=== PATIENT | male | born 1985 | race Caucasian/White ===

== ENCOUNTER 2016-07-11 11:29 | Outpatient (CLI) | payer BC ==
[~2016-07-11] VITALS: Ht 185.4 cm; Wt 181.7 kg
[~2016-07-11 11:29] MED LIST: ALPR0.5T7 PO; ARIP10TA17 PO; ASPI-816 PO; CARI350T27 PO; DICL75TA2 PO; DULO30CA48 PO; DULO60CA58 PO; ENAL2.5T PO; ENAL20TA PO; ENLP10T; GABA600T2 PO; GLIP10TA13 PO; HYDR-32; HYDR-3820 PO; HYDROCODONE; HYOS0.1217 PO; HYOS0.1283 SL; MECL-106 PO; METO-270 PO; METR500T PO; MTC10T; ONDA8TAB13 PO; ONDN4T; PANT40TA3 PO; PNT40TEC; PRAZ1CAP2 PO; PRAZ2CAP2 PO; PRM12.5SU; QUET200T57 PO; SCOP1PAT TOP; SCR1T1; SUCR1TAB PO; TRAZ100T92 PO; VENL75CA93 PO; [UNRECOGNIZED DRUG - CODE] PO
--- OUTSIDE RECORDS SUMMARY | 2016-07-11 11:33 | XMS REPORT | Continuity of Care Document ---
Author Author [facility] Organization [facility] Address Unknown Phone Unavailable Care Team Providers Care Aquatic Centre Manager Name Role Phone ABDULLAHI SY MD PCP Insurance Providers Payer Name Policy Number Subscriber Name Relationship [facility] [id number] Sebastian Monte Self / Same As Patient Advance Directives Directive Response Recorded Date/Time Advance Directives No 04/19/16 10:45am Health Care Power of L Tacker No 04/19/16 10:45am Organ Donor Yes 04/19/16 10:45am Resuscitation Status Full Code 04/19/16 10:45am Problems Active Problems Medical Problem Onset Date Status Closed head injury Unknown Acute Mesenteric adenitis Unknown Acute Medications Current Home Medications Medication Dose Units Route Directions Days/Qty Instructions Start Date Enalapril Maleate 20 Mg 20 Mg Oral Daily 04/25/15 Carisoprodol 350 Mg 350 Mg Oral Twice A Day 04/25/15 Alprazolam 0.5 Mg 0.5 Mg Oral Three Times A Day 04/25/15 Hydrocodone/Acetaminophen 1 Each 1 Tab Oral Every 6 Hours as needed for Pain 04/25/15 Gabapentin 600 Mg 600 Mg Oral Three Times A Day 04/25/15 Glipizide 10 Mg 10 Mg Oral Daily 04/25/15 Diclofenac Sodium 75 Mg 75 Mg Oral Twice A Day 04/25/15 Past Home Medications Medication Directions Ordered Status [Hydrocodone] , 04/15/08 Discontinued Sucralfate 1 Gm Tab, 05/12/08 Discontinued Metoclopramide Hcl 10 Mg Tablet, 05/12/08 Discontinued Pantoprazole Sodium 40 Mg Tablet.dr, 05/12/08 Discontinued Promethazine Hcl 12.5 Mg Supp, 05/12/08 Discontinued Enalapril Maleate 10 Mg Tab, 05/12/08 Discontinued Ondansetron Hcl 4 Mg Tab, 05/12/08 Discontinued Acetaminophen/Hydrocodone Bitart 1 Ea Tablet, 05/12/08 Discontinued Venlafaxine Hcl 75 Mg Cap.er.24h, 75 Mg Oral Daily 04/25/15 Discontinued Aripiprazole 10 Mg Tablet, 10 Mg Oral Daily 04/25/15 Discontinued Trazodone Hcl 100 Mg Tablet, 100 Mg Oral Daily 04/25/15 Discontinued Aspirin/Caffeine 1 Each Tablet, 1 Tab Oral Daily 04/25/15 Discontinued Hyoscyamine Sulfate 0.125 Mg Tab.subl, 0.25 Mg Sublingual Every 6 Hours as needed for Cramps 02/21/16 Discontinued Social History Social History Problem Response Recorded Date/Time Alcohol Use Denies Use 04/25/2015 11:34pm Recreational Drug Use No 04/25/2015 11:34pm Recent Foreign Travel No 04/19/2016 10:45am Recent Infectious Disease Exposure No 04/19/2016 10:45am Smoking Status Never a Smoker 04/19/2016 10:45am Do you dip or chew tobacco? Yes 04/25/2015 11:34pm Recent Hopitalizations No 04/19/2016 10:45am Query Response Start Date Stop Date Smoking Status Never a Smoker Hospital Discharge Instructions No hospital discharge instructions. Plan of Care Discharge Date 04/19/16 10:50am Prescriptions See Medication Section Functional Status No functional status results. Allergies, Adverse Reactions, Alerts Allergen Type Severity Reaction Status Last Updated Penicillins ([id number]) Allergy Unknown Active 02/21/16 Sulfa (Sulfonamide Antibiotics) ([id number]) Allergy Unknown UNKNOWN Active 02/21/16 PEAS Allergy Unknown UNKNOWN Active 12/29/06 Immunizations No immunization records. Vital Signs Acute Vital Signs Vital Response Date/Time Height (Feet) 6 feet 04/19/2016 10:45am Height (Inches) 1.00 inches 04/19/2016 10:45am Height (Calculated Centimeters) 185.519287 cm 04/19/2016 10:45am Weight (Pounds) 400 pounds 04/19/2016 10:45am Weight (Ounces) 0.0 oz 04/19/2016 10:45am Weight (Calculated Grams) 179760.95 gm 04/19/2016 10:45am Weight (Calculated Kilograms) 181.689578 kilograms 04/19/2016 10:45am Calculated BMI 52.8 04/19/2016 10:45am Results No known relevant diagnostic tests, laboratory data and/or discharge summary. Procedures No known history of procedures. Encounters Encounter Location Arrival/Admit Date Discharge/Depart Date Attending Provider Departed Clinic [facility] 04/19/16 9:50am 04/19/16 10: 50am ABDULAZIZ KWAN MD
[2016-07-11 11:48] VITALS: BP 139/100
[2016-07-14] MEDS ORDERED: HYDR-3730 PO (11:39)
== END 2016-07-11 11:50 | disposition home or self-care (01) ==
LOC: PREOP 11:29
PROVIDERS: ATTEND Surgery Pediatric Surgery
DX: Z01.818 Encounter for other preprocedural examination (principal); Z11.2 Encounter for screening for other bacterial diseases; K82.8 Other specified diseases of gallbladder
CPT/HCPCS: 87081

== ENCOUNTER 2016-07-14 09:04 | Day surgery (SDC) | payer BC ==
[~2016-07-14] VITALS: Ht 185.4 cm; Wt 181.7 kg
[~2016-07-14 09:04] MED LIST changes: +CLINDAMYCIN 600 MG/50 ML IVPB 50 ML IV ONE
--- OUTSIDE RECORDS SUMMARY | 2016-07-14 09:07 | XMS REPORT | Continuity of Care Document ---
Author Author [facility] Organization [facility] Address Unknown Phone Unavailable Care Team Providers Care Salt Machine Operator Name Role Phone ABDULLAHI SY MD PCP Insurance Providers Payer Name Policy Number Subscriber Name Relationship [facility] [id number] Sebastian Monte Self / Same As Patient Advance Directives Directive Response Recorded Date/Time Advance Directives No 04/19/16 10:45am Health Care Power of Manager Advanced No 04/19/16 10:45am Organ Donor Yes 04/19/16 [...] Type Severity Reaction Status Last Updated Penicillins ([id number]) Allergy Unknown Active 02/21/16 Sulfa (Sulfonamide Antibiotics) ([id number]) Allergy Unknown UNKNOWN Active 02/21/16 PEAS Allergy Unknown UNKNOWN Active 12/29/06 Immunizations No immunization records. Vital Signs Acute Vital Signs Vital Response Date/Time Height (Feet) 6 feet 04/19/2016 10:45am Height (Inches) 1.00 inches 04/19/2016 10:45am Height (Calculated Centimeters) 185.256756 cm 04/19/2016 10:45am Weight (Pounds) 400 pounds 04/19/2016 10:45am Weight (Ounces) 0.0 oz 04/19/2016 10:45am Weight (Calculated Grams) 998522.95 gm 04/19/2016 10:45am Weight (Calculated Kilograms) 181.993561 kilograms 04/19/2016 10:45am Calculated BMI 52.8 04/19/2016 10:45am Results No known relevant diagnostic tests, laboratory data and/or discharge summary. Procedures No known history of procedures. Encounters Encounter Location Arrival/Admit Date Discharge/Depart Date Attending Provider Departed Clinic [facility] 04/19/16 9:50am 04/19/16 10: 50am ABDULAZIZ KWAN MD
--- OUTSIDE RECORDS SUMMARY | 2016-07-14 09:08 | XMS REPORT | Continuity of Care Document ---
Author Author [facility] Organization [facility] Address Unknown Phone Unavailable Care Team Providers Care Learning Administrator Name Role Phone ABDULLAHI SY MD PCP Insurance Providers Payer Name Policy Number Subscriber Name Relationship [facility] [id number] Sebastian Monte Self / Same As Patient Advance Directives Directive Response Recorded Date/Time Advance Directives No 04/19/16 10:45am Health Care Power of Barman No 04/19/16 10:45am Organ Donor Yes 04/19/16 [...] Type Severity Reaction Status Last Updated Penicillins ([id number]) Allergy Unknown Active 02/21/16 Sulfa (Sulfonamide Antibiotics) ([id number]) Allergy Unknown UNKNOWN Active 02/21/16 PEAS Allergy Unknown UNKNOWN Active 12/29/06 Immunizations No immunization records. Vital Signs Acute Vital Signs Vital Response Date/Time Height (Feet) 6 feet 04/19/2016 10:45am Height (Inches) 1.00 inches 04/19/2016 10:45am Height (Calculated Centimeters) 185.433320 cm 04/19/2016 10:45am Weight (Pounds) 400 pounds 04/19/2016 10:45am Weight (Ounces) 0.0 oz 04/19/2016 10:45am Weight (Calculated Grams) 458828.95 gm 04/19/2016 10:45am Weight (Calculated Kilograms) 181.178703 kilograms 04/19/2016 10:45am Calculated BMI 52.8 04/19/2016 10:45am Results No known relevant diagnostic tests, laboratory data and/or discharge summary. Procedures No known history of procedures. Encounters Encounter Location Arrival/Admit Date Discharge/Depart Date Attending Provider Departed Clinic [facility] 04/19/16 9:50am 04/19/16 10: 50am ABDULAZIZ KWAN MD
[2016-07-14] MEDS ORDERED: CATHETER FLUSH 10 ML SYR IV PRN (09:15)
[2016-07-14] MEDS ORDERED: CLINDAMYCIN 600 MG/50 ML IVPB 50 ML IV ONE (09:15)
[2016-07-14] MEDS ORDERED: FAMOTIDINE 20MG/2ML IV (PEPCID) IV ONE (09:30)
--- NOTE | 2016-07-14 09:36 | Progress Note-Pre Operative ---
Pre-Operative Progress Note H&P Reviewed The H&P was reviewed, patient examined and no changes noted. Date H&P Reviewed: Jul 14, 2016 Time H&P Reviewed: 09:30 Pre-Operative Diagnosis: symptomatic biliary dyskinesia ABDULAZIZ KWAN MD Jul 14, 2016 9:36 am
[2016-07-14] MEDS ORDERED: morphine INJ 10 MG/ML 1ML (SYR OR VIAL) IVP PRN ×2 (09:45→12:15)
[2016-07-14] MEDS ORDERED: ONDANSETRON 4 MG/2 ML (SDV) Z0FRAN IVP PRN ×2 (09:45→12:15)
[2016-07-14] MEDS ORDERED: HYDROcodone/APAP 5 MG/325 MG (LORTAB) TAB PO ONE (09:45)
[2016-07-14] MEDS ORDERED: ACETAMINOPHEN 325 MG TABLET/CAPLET (TYLENOL) PO PRN (09:45)
[2016-07-14] MEDS: LACTATED RINGERS 1,000 ML IV PRN ×2 (09:46→10:45)
[2016-07-14] MEDS ORDERED: BUP/EPI 0.5% 1:200,000 (SENSORCAINE) 30 ML VIAL ONE (09:49)
[2016-07-14] MEDS ORDERED: MIDAZOLAM 2 MG/2 ML (VERSED) VIAL ONE (09:51)
[2016-07-14] MEDS ORDERED: ONDANSETRON 4 MG/2 ML (SDV) Z0FRAN ONE (09:51)
[2016-07-14] MEDS ORDERED: proPOfol 200 MG/20 ML (DIPRIVAN) VIAL IV ONE (09:51)
[2016-07-14] MEDS ORDERED: ROCURONIUM 50 MG/5 ML (ZEMURON) VIAL IV ONE ×3 (09:51→11:15)
[2016-07-14] MEDS ORDERED: SEVOFLURANE (ULTANE) 15 ML INHAL SOLN ONE ×3 (09:51→11:30)
[2016-07-14] MEDS ORDERED: fentaNYL INJECTION 250 MCG/5 ML AMP ONE (09:51)
[2016-07-14] MEDS ORDERED: LIDOCAINE PF 2% 10 ML (XYLOCAINE) AMP ONE (09:51)
[2016-07-14] MEDS ORDERED: LACTATED RINGERS 1,000 ML IV ONE ×2 (09:51→11:05)
[2016-07-14 10:01] VITALS: BP 145/103
[2016-07-14] MEDS ORDERED: ENAL20TA PO (10:16)
[2016-07-14] MEDS ORDERED: ESMOLOL 100 MG/10 ML (BREVIBLOC) VIAL ONE (11:00)
[2016-07-14] MEDS ORDERED: NEOSTIGMINE (BLOXIVERZ ) 1 MG/1ML 10 ML VIAL ONE (11:17)
[2016-07-14] MEDS ORDERED: GLYCOPYRROLATE 0.2 MG/ML (ROBINUL) 2 ML VIAL ONE (11:17)
--- NOTE | 2016-07-14 11:38 | Progress Note-Post Operative ---
Post-Operative Progess Note Keyboard Instrument Tuner theo arcos SHEET LAYER Pre-Operative Diagnosis symptomatic biliary dyskinesia Post-Operative Diagnosis same Post-Op Procedure Note Date of Procedure: Jul 14, 2016 Name of Procedure: laparoscopic cholecystectomy Anesthesia Type GET Estimated blood loss (mL): minimal Specimen(s) collected gallbladder ABDULAZIZ KWAN MD Jul 14, 2016 11:38
[2016-07-14] MEDS ORDERED: HYDR-3730 PO (11:39)
--- NOTE | 2016-07-14 11:40 | Discharge Inst-Surgical ---
D/C Lap Instructions-ANIYA New, Converted, or Re-Newed RX: RX on Chart Follow Up Appt in 2 weeks Activity as tolerated No driving for 24 hours No driving while on pain medications Incentive Spirometry use every 2 hours while awake Regular Diet Symptoms to Report: Fever over 101 degree F, Nausea/Vomiting Infection Signs and Symptoms to report: Increased redness, Foul odor of wound, Increased drainage Bathing instructions: May shower Operative Area Clean/Dry; Keep incision clean/dry If any problems/questions: Contact your physician or go to Emergency Room ABDULAZIZ KWAN MD Jul 14, 2016 11:40
[2016-07-14] MEDS ORDERED: MEPERIDINE (DEMEROL) INJ 50 MG/ML IVP PRN (12:15)
[2016-07-14] MEDS ORDERED: HYDROmorphone (DILAUDID) 2 MG/ML VIAL IVP PRN (12:15)
[2016-07-14] MEDS ORDERED: morphine INJ 10 MG/ML 1ML (SYR OR VIAL) ONE (12:17)
--- NOTE | 2016-07-14 12:57 | OPERATIVE REPORT ---
PROCEDURE PHYSICIAN: ABDULAZIZ PELAEZ DATE OF PROCEDURE: 07/14/2016 ATTENDING PHYSICIAN: Dr. Rich Dillard. PREOPERATIVE DIAGNOSIS: Symptomatic biliary dyskinesia. POSTOPERATIVE DIAGNOSIS: Symptomatic biliary dyskinesia. PROCEDURE: Laparoscopic cholecystectomy. SURGEON: Dr. Pelaez. GROUNDS CREW SUPERVISOR: Ramon Hoffman APRN. ANESTHESIA: General endotracheal. ESTIMATED BLOOD LOSS: Minimal. FINDINGS: 1. Significant hepatomegaly. 2. Mild gallbladder wall inflammation. 3. No stones identified. DISPOSITION: The patient tolerated the procedure well. Mr. Leland Lobo is a 30-year-old male with multiple medical problems. We had initially seen him in 2007 for a large symptomatic hiatal hernia and underwent a hiatal hernia repair and Alda fundoplication. Over time, he has gained a significant amount of weight. He has had issues with reflux and regurgitation and has also developed sleep apnea. We did an EGD and colonoscopy on him 04/2016 and was found to have reflux esophagitis between class B and C with no recurrent hiatal hernia, and intact previous Alda fundoplication. There was a moderate to severe gastritis more towards the upper portion of the stomach. The colonoscopy showed chronic, stage II external and internal hemorrhoids. He is medically treated; however, had continued episodes of nausea and vomiting and diarrhea, which normally would occur after eating meals. An ultrasound was performed, which did not show any gallstones however, HIDA scan was performed, which showed a very low ejection fraction and severe reproduction of symptoms consistent with symptomatic biliary dyskinesia. PROCEDURE: The patient was brought to the operating room, laid supine on the table. After adequate IV pain and sedative medications and general endotracheal intubation, the abdomen was prepped and draped in the standard surgical fashion. 0.5% Marcaine with epinephrine was then used to anesthetize the overlying skin in the left upper abdominal quadrant. A small transverse incision made using a 15 blade. An 0 silk suture was applied to the medial aspect of the incision for retraction. The Veress needle inserted with a low opening pressure of 0 mmHg and the abdomen was then insufflated to 15 mmHg pressure. A four-quadrant abdominal exploration was performed. There was a significant hepatomegaly as well as very thick omentum. Under direct visualization we then proceeded to place a supraumbilical 10 mm port after the skin and peritoneum were anesthetized using 0.5% Marcaine with epinephrine and a transverse incision made using a 15 blade. In a similar manner, 2 right upper abdominal quadrant, 5 mm ports were placed. The patient was then placed in steep reverse Trendelenburg position as well as planed right side up and left side down. The fundus of the gallbladder was retracted anteriorly and superiorly. There were omental adhesions to the body of the gallbladder which were bluntly dissected. The hepatoduodenal ligament was then opened using blunt dissection using a [place] dissector. The entire critical view of safety was identified including the triangle of Calot, cystic duct and artery, as well as the inferior portion of the gallbladder and the liver behind it. A timeout was then taken and the cystic duct and artery were then clipped proximally, distally and cut with Endo Lynsey. The appendix was then dissected off of the liver fossae using electrocautery on the hook instrument with visualization of good hemostasis, as well as no leaking ducts of Luschka. The area was then copiously irrigated and suctioned out. The subphrenic space was then irrigated and suctioned as well. The gallbladder was removed through the 10 mm port site using an Endo Catch bag. A 10 mm port site, fascia and peritoneum were then closed under direct visualization using a Jad is Charlie device the abdomen was desufflated and the remaining ports removed. Also skin incisions were then closed using 4-0 Monocryl running sutures. Wounds were then cleaned and covered with Dermabond. The patient tolerated the procedure well. We will start IV and oral pain medication as well as a clear liquid diet. Once he is tolerating clears, has good pain control with oral pain medications, ambulating well, we will discharge him home. Job ID: [id number] Dictated Date: 07/14/2016 11:48:32 Family Medicine Chair Date: 07/14/2016 12:40:42 / dandre
[2016-07-14 13:10] VITALS: BP 146/90
[2016-07-14] MEDS ORDERED: HYDROcodone/APAP 5 MG/325 MG (LORTAB) TAB ONE (13:31)
[2016-07-14 13:40] VITALS: BP 141/92
[2016-07-14 14:10] VITALS: BP 142/91
[2016-07-14 14:40] VITALS: BP 142/91
== END 2016-07-14 14:40 | disposition home or self-care (01) ==
LOC: SDC 09:04
PROVIDERS: ATTEND Surgery Pediatric Surgery
DX: K81.1 Chronic cholecystitis (principal)
CPT/HCPCS: 82962; 94664

== ENCOUNTER 2017-03-23 11:31 | Emergency (ER) | payer BC ==
[~2017-03-23] VITALS: Ht 185.4 cm; Wt 158.8 kg
[~2017-03-23 11:31] MED LIST changes: -CLINDAMYCIN 600 MG/50 ML IVPB 50 ML IV ONE; +HYDR-3730 PO; +HYOS-6 PO; -HYOS0.1217 PO
[2017-03-23] MEDS: NS IV 1000 ML 1,000 ML IV ONE ×2 (12:15→13:26)
[2017-03-23 12:19] LABS: BASOPHILS # (AUTO) 0.1 10^3/uL (0.0-0.1); BASOPHILS % (AUTO) 1 % (0-10); EOSINOPHILS # (AUTO) 0.3 10^3/uL (0.0-0.3); EOSINOPHILS % (AUTO) 3 % (0-10); LYMPHOCYTES # (AUTO) 2.8 X 10^3 (1.0-4.0); LYMPHOCYTES % (AUTO) 30 % (12-44); MEAN CORPUSCULAR HEMOGLOBIN 29 PG (25-34); MEAN CORPUSCULAR HGB CONC 34 G/DL (32-36); MEAN CORPUSCULAR VOLUME 86 FL (80-99); MONOCYTES # (AUTO) 0.8 X 10^3 (0.0-1.0); MONOCYTES % (AUTO) 8 % (0-12); NEUTROPHILS # (AUTO) 5.5 X 10^3 (1.8-7.8); NEUTROPHILS % (AUTO) 59 % (42-75); PLATELET COUNT 258 10^3/uL (130-400); RED BLOOD COUNT 5.48 10^6/uL (4.35-5.85); RED CELL DISTRIBUTION WIDTH 14.1 % (10.0-14.5); WHITE BLOOD COUNT 9.4 10^3/uL (4.3-11.0)
[2017-03-23 12:34] LABS: ALANINE AMINOTRANSFERASE 18 U/L (0-55); ALBUMIN 4.6 GM/DL (3.2-4.5); ANION GAP 14 MMOL/L (5-14); ASPARTATE AMINO TRANSFERASE 19 U/L (5-34); BILIRUBIN,TOTAL 0.5 MG/DL (0.1-1.0); BLOOD UREA NITROGEN 18 MG/DL (7-18); BUN/CREATININE RATIO 19; CALCIUM 10.7 MG/DL (8.5-10.1); CARBON DIOXIDE 25 MMOL/L (21-32); CHLORIDE 100 MMOL/L (98-107); CREATININE SERUM 0.93 MG/DL (0.60-1.30); GFR ESTIMATED > 60; GLUCOSE 130 MG/DL (70-105); POTASSIUM 3.9 MMOL/L (3.6-5.0); SODIUM 139 MMOL/L (135-145); TOTAL PROTEIN 8.4 GM/DL (6.4-8.2)
[2017-03-23 12:36] LABS: PROTHROMBIN TIME PATIENT 12.9 SEC (12.2-14.7)
[2017-03-23 12:37] LABS: MAGNESIUM 1.7 MG/DL (1.8-2.4)
[2017-03-23 12:41] LABS: KETONES,URINE 1+ (NEGATIVE); LEUKOCYTE ESTERASE ,URINE 1+ (NEGATIVE); NITRITE,URINE NEGATIVE (NEGATIVE); PH,URINE 5 (5-9); PROTEIN,URINE 2+ (NEGATIVE); UROBILINOGEN,URINE 1 MG/DL (NORMAL)
[2017-03-23 12:50] LABS: MYOGLOBIN SERUM 129.5 NG/ML (10.0-92.0)
[2017-03-23 12:50] LABS: BILIRUBIN,URINE 1+ (NEGATIVE)
--- NOTE | 2017-03-23 12:50 | Diagnostic Imaging Report ---
PROCEDURE: CT head without contrast. TECHNIQUE: Multiple contiguous axial images were obtained through the brain without the use of intravenous contrast. INDICATION: Dizziness and sweating. Comparison: CT head of 04/25/2015 Findings: No hyperdense hemorrhage or space-occupying mass. No hydrocephalus or midline shift. The basilar cisterns are normal. Sommers-white matter differentiation is well preserved. The mastoid air cells are clear. Paranasal sinuses are normal. No focal osseous abnormality of the calvarium. Impression: No acute intracranial process. Dictated by: Dictated on workstation # [id number]
[2017-03-23 12:51] LABS: WBC,URINE RARE /HPF
--- NOTE | 2017-03-23 13:01 | ED General ---
General Chief Complaint: General Problems/Pain Stated Complaint: PROFUSE SWEATING/DIZZY/NUMBNESS IN ARMS Nursing Triage Note: Ambulatory to ED 8 with reports of vomiting, headache and being profusely sweaty since last night. Nursing Sepsis Screen: No Definite Risk History of Present Illness Time Seen by Provider: 11:45 Initial Comments Patient reports yesterday evening at home, he was doing some work when he hit his head on a metal pipe, in the frontal lobe. He denies loss of consciousness. After that he began vomiting he reports approximately 6-8 times last evening. He 's had no vomiting or diarrhea today. He reports while at work today he became extremely diaphoretic and dizzy at times. He reports poor urinary output. He ate breakfast this morning and has had sips of water to drink throughout the day. He is a type II diabetic on glipizide, he reports his blood sugars have been stable and that his last hemoglobin A1c was elevated. He reports a continued frontal headaches 12/10. He is diaphoretic, skin is pink and his clothes are saturated. He reports a long-standing history of back pain from a previous injury and surgery, with posterior fusions thoracic and lumbar spine. He had a cholecystectomy in July 2016. He reports occasional chest discomfort which he is related to heartburn. The pain occasionally radiates into his back. He has occasional numbness and tingling in his bilateral upper extremities. Timing/Duration: 12-24 Hours Severity: Mild Associated Systoms: Chest Pain, Diaphoresis, Headaches, Nausea/Vomiting, Weakness Allergies and Home Medications Allergies Coded Allergies: Penicillins (Verified Allergy, Unknown, 02/21/16) Sulfa (Sulfonamide Antibiotics) (Unverified Allergy, Unknown, UNKNOWN, ) peas (Unverified Allergy, Unknown, 06/09/16) FROM UNCODED ALLERGIES Home Medications Alprazolam 0.5 Mg Tablet, 0.5 MG PO TID PRN for ANXIETY, (Reported) Aspirin/Caffeine 1 Each Tablet, 1 TAB PO DAILY PRN for PAIN, (Reported) Carisoprodol 350 Mg Tablet, 700 MG PO BID, (Reported) TAKES 2 (350MG) TABLETS Diclofenac Sodium 75 Mg Tablet.dr, 75 MG PO BID, (Reported) Duloxetine HCl 30 Mg Capsule.dr, 30 MG PO HS, (Reported) TAKES ALONG WITH A 60MG CAPSULE Duloxetine HCl 60 Mg Capsule., 60 MG PO HS, (Reported) TAKES ALONG WITH A 30MG CAPSULE Enalapril Maleate 20 Mg Tablet, 20 MG PO DAILY, (Reported) Gabapentin 600 Mg Tablet, 600 MG PO TID, (Reported) Glipizide 10 Mg Tablet, 10 MG PO HS, (Reported) Hydrocodone/Acetaminophen 1 Each Tablet, 2 TAB PO BID, (Reported) Hydrocodone/Acetaminophen 1 Each Tablet, 1-2 EACH PO Q4H, #35 Prescribed by: ABDULAZIZ KWAN on 07/14/16 1139 Hyoscyamine Sulfate 0.125 Mg Tab.rapdis, 1-2 TAB PO Q6H PRN for CRAMPS, ( Reported) Meclizine HCl 25 Mg Tablet, 25 MG PO Q6H, #30 Prescribed by: ALEX BLACKWELL on 06/09/16 1639 Ondansetron 8 Mg Tab.rapdis, 8 MG PO Q8H PRN for NAUSEA, (Reported) Pantoprazole Sodium 40 Mg Tablet.dr, 40 MG PO DAILY PRN for HEARTBURN, (Reported ) Quetiapine Fumarate 200 Mg Tablet, 200 MG PO HS, (Reported) Quetiapine Fumarate 200 Mg Tablet, 100 MG PO DAILY PRN for AGITATION, (Reported) TAKES 1/2 (200MG) TABLET Scopolamine 1 Each Patch.td72, 1.5 MG TOP Q72H, #5 Prescribed by: ALEX BLACKWELL on 06/09/16 1639 Sucralfate 1 Gm Tablet, 1 GM PO QID PRN for STOMACH UPSET, (Reported) Constitutional: no symptoms reported, see HPI EENTM: see HPI, no symptoms reported Respiratory: no symptoms reported, see HPI Cardiovascular: see HPI, chest pain Gastrointestinal: see HPI, heartburn, vomiting Genitourinary: no symptoms reported, see HPI Musculoskeletal: no symptoms reported Skin: see HPI, other (marked diaphoresis) Psychiatric/Neurological: No Symptoms Reported, See HPI Hematologic/Lymphatic: No Symptoms Reported, See HPI Immunological/Allergic: no symptoms reported, see HPI All Other Systems Reviewed Negative Unless Noted: Yes Past Ucjfeyo-Gwqxzx-Ydarby Hx Patient Social History Alcohol Use: Denies Use Recreational Drug Use: No Smoking Status: Never a Smoker 2nd Hand Smoke Exposure: No Recent Foreign Travel: No Contact w/Someone Who Travel: No Recent Infectious Disease Expo: No Recent Hopitalizations: No Physical Abuse: No Sexual Abuse: No Immunizations Up To Date Tetanus Booster (TDap): Less than 5yrs Date of Influenza Vaccine: Mar 03, 2016 Seasonal Allergies Seasonal Allergies: Yes Surgeries History of Surgeries: Yes (LEFT THUMB, LEFT FOOT, BACK SURGERY, LAP HERLINDA FUNDOPLICATION) Surgeries: Abdominal, Orthopedic Respiratory History of Respiratory Disorde: Yes Respiratory Disorders: Sleep Apnea Currently Using CPAP: Yes Currently Using BIPAP: No Cardiovascular History of Cardiac Disorders: Yes Cardiac Disorders: Chronic Edema/Swelling, Hypertension Neurological History of Neurological Disord: Yes Neurological Disorders: Headaches /Migraines Reproductive System Hx Reproductive Disorders: No Sexually Transmitted Disease: No HIV/AIDS: No Gastrointestinal History of Gastrointestinal Di: Yes (ABDOMINAL PAIN) Gastrointestinal Disorders: Gastroesophageal Reflux, Hiatal Hernia, Gall Bladder Disease Musculoskeletal History of Musculoskeletal Dis: Yes Musculoskeletal Disorders: Chronic Back Pain, Fractures Endocrine History of Endocrine Disorders: Yes (MORBID OBESITY) Endocrine Disorders: Diabetes, Non-Insulin dep Cancer History of Cancer: No Psychosocial History of Psychiatric Problem: Yes Behavioral Health Disorders: Anxiety, PTSD, Depression Suicide Risk Score: 0 Integumentary History of Skin or Integumenta: No Blood Transfusions History of Blood Disorders: No Adverse Reaction to a Blood Tr: No Reviewed Nursing Assessment Reviewed/Agree w Nursing PMH: Yes Physical Exam Vital Signs Vital Sign - Last 12Hours 03/23/17 11:45 Temp 98.5 Pulse 97 Resp 20 B/P (MAP) 123/85 Pulse Ox 97 O2 Delivery Room Air Capillary Refill : Less Than 3 Seconds General Appearance: Anxious, Mild Distress, Other (marked diaphoresis) Eyes: Bilateral Eye Normal Inspection, Bilateral Eye PERRL, Bilateral Eye EOMI HEENT: PERRL/EOMI, TMs Normal, Normal ENT Inspection, Pharynx Normal Neck: Full Range of Motion, Normal Inspection, Non Tender, Supple, No Lymphadenopathy (L), No Lymphadenopathy (R) Respiratory: Chest Non Tender, Lungs Clear, Normal Breath Sounds, No Accessory Muscle Use Cardiovascular: Regular Rate, Rhythm, No Edema, No Murmur, Normal Peripheral Pulses Gastrointestinal: Normal Bowel Sounds, No Organomegaly, No Pulsatile Mass, Non Tender, Soft Back: No CVA Tenderness, Decreased Range of Motion, Muscle Spasm, Vertebral Tenderness, Other (scar noted from upper thoracic to mid lumbar, mild ecchymosis and mottling, patient denies noticing skin changes to his spine. His skin is hypersensitive to touch.) Extremity: Normal Capillary Refill, Normal Inspection, Normal Range of Motion, Non Tender, No Calf Tenderness, No Pedal Edema Neurologic/Psychiatric: Alert, Oriented x3, No Motor/Sensory Deficits, Normal Mood/Affect Skin: Normal Color, Diaphoresis, Mottled (thoracic and lumbar spine) Lymphatic: No Adenopathy Progress/Results/Core Measures Results/Orders Lab Results Laboratory Tests Test 03/23/17 12:05 03/23/17 12:09 03/23/17 12:34 Range/Units White Blood Count 9.4 4.3-11.0 10^3/uL Red Blood Count 5.48 4.35-5.85 10^6/uL Hemoglobin 16.1 13.3-17.7 G/DL Hematocrit 47 40-54 % Mean Corpuscular Volume 86 80-99 FL Mean Corpuscular Hemoglobin 29 25-34 PG Mean Corpuscular Hemoglobin Concent 34 32-36 G/DL Red Cell Distribution Width 14.1 10.0-14.5 % Platelet Count 258 130-400 10^3/uL Mean Platelet Volume 10.0 7.4-10.4 FL Neutrophils (%) (Auto) 59 42-75 % Lymphocytes (%) (Auto) 30 12-44 % Monocytes (%) (Auto) 8 0-12 % Eosinophils (%) (Auto) 3 0-10 % Basophils (%) (Auto) 1 0-10 % Neutrophils # (Auto) 5.5 1.8-7.8 X 10^3 Lymphocytes # (Auto) 2.8 1.0-4.0 X 10^3 Monocytes # (Auto) 0.8 0.0-1.0 X 10^3 Eosinophils # (Auto) 0.3 0.0-0.3 10^3/uL Basophils # (Auto) 0.1 0.0-0.1 10^3/uL Erythrocyte Sedimentation Rate 4 0-15 MM/HR Prothrombin Time 12.9 12.2-14.7 SEC INR Comment 1.0 0.8-1.4 Activated Partial Thromboplast Time 25 24-35 SEC Sodium Level 139 135-145 MMOL/L Potassium Level 3.9 3.6-5.0 MMOL/L Chloride Level 100 98-107 MMOL/L Carbon Dioxide Level 25 21-32 MMOL/L Anion Gap 14 5-14 MMOL/L Blood Urea Nitrogen 18 7-18 MG/DL Creatinine 0.93 0.60-1.30 MG/DL Estimat Glomerular Filtration Rate > 60 BUN/Creatinine Ratio 19 Glucose Level 130 H 70-105 MG/DL Calcium Level 10.7 H 8.5-10.1 MG/DL Magnesium Level 1.7 L 1.8-2.4 MG/DL Total Bilirubin 0.5 0.1-1.0 MG/DL Aspartate Amino Transf (AST/SGOT) 19 5-34 U/L Alanine Aminotransferase (ALT/SGPT) 18 0-55 U/L Alkaline Phosphatase 71 40-136 U/L Myoglobin 129.5 H 10.0-92.0 NG/ML Troponin I < 0.30 <0.30 NG/ML C-Reactive Protein High Sensitivity 0.93 H 0.00-0.50 MG/DL Total Protein 8.4 H 6.4-8.2 GM/DL Albumin 4.6 H 3.2-4.5 GM/DL Glucometer 119 H 70-110 MG/DL Urine Color YELLOW Urine Clarity CLEAR Urine pH 5 5-9 Urine Specific [place] 1.025 H 1.016-1.022 Urine Protein 2+ H NEGATIVE Urine Glucose (UA) NEGATIVE NEGATIVE Urine Ketones 1+ H NEGATIVE Urine Nitrite NEGATIVE NEGATIVE Urine Bilirubin 1+ H NEGATIVE Urine Urobilinogen 1 NORMAL MG/DL Urine Leukocyte Esterase 1+ H NEGATIVE Urine RBC (Auto) NEGATIVE NEGATIVE Urine RBC NONE /HPF Urine WBC RARE /HPF Urine Squamous Epithelial Cells 10-25 H /HPF Urine Crystals NONE /LPF Urine Bacteria TRACE /HPF Urine Casts NONE /LPF Urine Mucus NEGATIVE /LPF Urine Culture Indicated NO My Orders Orders - CLIFTON ROACH Cbc With Automated Diff (03/23/17 11:58) Comprehensive Metabolic Panel (03/23/17 11:58) Ua Culture If Indicated (03/23/17 11:58) Saline Lock/Iv-Start (03/23/17 11:58) Ns Iv 1000 Ml (Sodium Chloride 0.9%) (03/23/17 11:58) Ekg Tracing (03/23/17 12:05) Magnesium (03/23/17 12:19) Cardiac Profile 1 (03/23/17 12:19) Myoglobin Serum (03/23/17 12:19) Protime With Inr (03/23/17 12:19) Partial Thromboplastin Time (03/23/17 12:19) Ct Head Wo (03/23/17 12:19) Thoracic Spine, 2 Views Only (03/23/17 12:19) Lumbar Spine - 2-3 Views (03/23/17 12:19) Hs C Reactive Protein (03/23/17 12:19) Erythrocyte Sedimentation Rate (03/23/17 12:19) Saline Lock/Iv-Start (03/23/17 13:13) Ns Iv 1000 Ml (Sodium Chloride 0.9%) (03/23/17 13:13) Medications Given in ED Current Medications Medications Dose Ordered Sig/Yves Route Start Time Stop Time Status Last Admin Dose Admin Sodium Chloride 1,000 ml @ 0 mls/hr Q0M ONCE IV 03/23/17 11:58 03/23/17 12:00 DC 03/23/17 12:15 0 MLS/HR Sodium Chloride 1,000 ml @ 0 mls/hr Q0M ONCE IV 03/23/17 13:13 03/23/17 13:16 DC 03/23/17 13:26 0 MLS/HR Vital Signs/I&O Vital Sign - Last 12Hours 03/23/17 03/23/17 11:45 14:10 Temp 98.5 98.5 Pulse 97 74 Resp 20 18 B/P (MAP) 123/85 Pulse Ox 97 98 O2 Delivery Room Air Intake and Output 03/24/17 00:00 Intake Total 2000 ml Balance 2000 ml Blood Pressure Mean: 98 Progress Note : Time: 11:45 Progress Note Initial evaluation completed, we will obtain a workup for cardiac causes of his symptoms. EKG obtained in normal sinus rhythm. Additional labs and x-rays will be obtained along with a CT of the head. Normal saline 1 L IV. 1245 patient no longer having diaphoresis. Reports pain is improving and the paresthesias/radicular symptoms in the upper extremities are improving. Discussed that he was possibly dehydrated from the vomiting last evening. His labs, CT and x-rays are all essentially normal. 1320 patient reports his symptoms are continuing to improve. His headache has seen. Will administer an additional normal saline 1 L IV. Discharge planning for after the second liter of fluids were discussed with the patient, he will stay home from work for the rest of today and tomorrow and return to work on Monday. ECG Initial ECG Impression Date: Mar 23, 2017 Initial ECG Impression Time: 12:03 Initial ECG Rate: 91 Initial ECG Rhythm: Normal Sinus Initial ECG Intervals: Normal Initial ECG Intervals NM 152, QRS 3092, QT 344, QTC 424. [place] P 16, QRS negative for, T -2. Initial ECG Impression: Normal Initial ECG Comparisson: Unchanged Comment Reviewed EKG with Dr. Brown, concurred with the interpretation. Diagnostic Imaging Diagonstic Imaging: CT Plain Films/CT/US/NM/MRI: head Comments NAME: [facility] REC#: [id number] PHYSICIAN: CLIFTON ROACH CC: CLIFTON ROACH; RICHARD LINDA MD Page 1 of 1 RADIOLOGY REPORT VIA [facility], [facility]. [place], [place] CC: CLIFTON ROACH; RICHARD LINDA MD Page 1 of 1 RADIOLOGY REPORT NAME: [facility] REC#: [id number] PT STATUS: REG ER : 1985 PHYSICIAN: CLIFTON ROACH ADMIT DATE: 03/23/17/ER Signed Date of Exam: 03/23/17 CT HEAD WO PROCEDURE: CT head without contrast. TECHNIQUE: Multiple contiguous axial images were obtained through the brain without the use of intravenous contrast. INDICATION: Dizziness and sweating. Comparison: CT head of 04/25/2015 Findings: No hyperdense hemorrhage or space-occupying mass. No hydrocephalus or midline shift. The basilar cisterns are normal. Sommers-white matter differentiation is well preserved. The mastoid air cells are clear. Paranasal sinuses are normal. No focal osseous abnormality of the calvarium. Impression: No acute intracranial process. Dictated by: Dictated on workstation # [id number] Dict: 03/23/17 1246 Trans: 03/23/17 1248 Interpreted by: RICHARD LINDA MD Electronically signed by: RICHARD LINDA MD 03/23/17 1248 Reviewed: Reviewed by Nv Diagonstic Imaging: Xray Plain Films/CT/US/NM/MRI: other (lumbar spine) Comments NAME: [facility] REC#: [id number] PT STATUS: REG ER : 1985 PHYSICIAN: CLIFTON ROACH ADMIT DATE: 03/23/17/ER Draft Date of Exam:03/23/17 LUMBAR SPINE - 2-3 VIEWS Three views of the lumbar spine. INDICATION: Fall. FINDINGS: There is satisfactory alignment of the lumbar spine. There is posterior fusion hardware seen extending from the thoracic spine to L3 level. The transpedicular screws skip T12 and involves in the lumbar spine L1, L2 and L3. There is mild vertebral body height loss at T11 and T12, may relate to prior injury. Vertebral body heights at the lumbar spine is normal. No significant posterior osteophytes or disc height loss. IMPRESSION: Suggestion of old compression fractures of T11 and T12 with posterior fusion hardware extending from the thoracic spine to L3 level. Dictated on workstation # [id number] Dict: 03/23/17 1307 Trans: 03/23/17 1317 [facility] [id number] Interpreted by: ERNESTINE PARK MD Electronically signed by: Reviewed: Reviewed by Me Diagonstic Imaging: Xray Plain Films/CT/US/NM/MRI: other (thoracic spine) Comments NAME: [facility] REC#: [id number] PT STATUS: REG ER : 1985 PHYSICIAN: CLIFTON ROACH ADMIT DATE: 03/23/17/ER Draft Date of Exam:03/23/17 THORACIC SPINE, 2 VIEWS ONLY Three views of the thoracic spine. INDICATION: Fall. FINDINGS: There is thoracic spine posterior fusion hardware with connecting rods extending from T3-L3 levels. There is prominent kyphotic curvature of the thoracic spine. There is vertebral body height loss involving T11 and T12 levels presumably related to old injury. When correlated with CT of the 06/09/2016 similar vertebral body heights and interval change is seen. Multilevel anterior osteophytes involving the lower thoracic spine levels is seen. The alignment of the posterior spinal line is satisfactory. IMPRESSION: Posterior fusion hardware involving T3-L3 levels. There is exaggerated kyphosis in the thoracic spine. Chronic mild anterior wedging of T11 and T12 vertebra. Dictated on workstation # [id number] Dict: 03/23/17 1310 Trans: 03/23/17 1320 [facility] [id number] Interpreted by: ERNESTINE PAKR MD Electronically signed by: Reviewed: Reviewed by Me Departure Impression Impression: Primary Impression: Closed head injury Qualified Codes: S09.90XA - Unspecified injury of head, initial encounter Additional Impressions: Vomiting Qualified Codes: R11.11 - Vomiting without nausea Dehydration Disposition: HOME, SELF-CARE Condition: Improved Departure-Patient Inst. Decision time for Depature: 13:00 Referrals: ABDULLAHI DILLARD MD (PCP/Family) Primary Care Physician Patient Instructions: Dehydration, Adult (DC), Minor Head Injury (DC), Nausea and Vomiting, Adult (DC) Add. Discharge Instructions: Tylenol 650 mg every 6-8 hours as needed for headache or pain. Follow-up with Dr. Dillard if symptoms continue. Return to emergency department for fever greater than 101, seizure activity, change in mental status, uncontrolled vomiting, or new problems. All discharge instructions reviewed with patient and/or family. Voiced understanding. Work/School Note: Work Release Form Date Seen in the Emergency Department: Mar 23, 2017 Return to Work: Mar 27, 2017 Restrictions: No Restrictions Other Restrictions Listed Below: If continued problems, follow up with Dr. Dillard Copy Copies To 1: ABDULLAHI DILLARD MD, AMY ARNP Mar 23, 2017 13:01
--- NOTE | 2017-03-23 13:17 | Diagnostic Imaging Report ---
Three views of the lumbar spine. INDICATION: Fall. FINDINGS: There is satisfactory alignment of the lumbar spine. There is posterior fusion hardware seen extending from the thoracic spine to L3 level. The transpedicular screws skip T12 and involves in the lumbar spine L1, L2 and L3. There is mild vertebral body height loss at T11 and T12, may relate to prior injury. Vertebral body heights at the lumbar spine is normal. No significant posterior osteophytes or disc height loss. IMPRESSION: Suggestion of old compression fractures of T11 and T12 with posterior fusion hardware extending from the thoracic spine to L3 level. Dictated by: Dictated on workstation # [id number]
--- NOTE | 2017-03-23 13:21 | Diagnostic Imaging Report ---
Three views of the thoracic spine. INDICATION: Fall. FINDINGS: There is thoracic spine posterior fusion hardware with connecting rods extending from T3-L3 levels. There is prominent kyphotic curvature of the thoracic spine. There is vertebral body height loss involving T11 and T12 levels presumably related to old injury. When correlated with CT of the 06/09/2016 similar vertebral body heights and interval change is seen. Multilevel anterior osteophytes involving the lower thoracic spine levels is seen. The alignment of the posterior spinal line is satisfactory. IMPRESSION: Posterior fusion hardware involving T3-L3 levels. There is exaggerated kyphosis in the thoracic spine. Chronic mild anterior wedging of T11 and T12 vertebra. Dictated by: Dictated on workstation # [id number]
[2017-03-23 14:10] VITALS: BP 130/85
== END 2017-03-23 14:10 | disposition home or self-care (01) ==
LOC: EDUNIT# 11:31 → ER 11:34
DX: S09.90XA Unspecified injury of head, initial encounter (principal); E86.0 Dehydration; R11.10 Vomiting, unspecified; F41.9 Anxiety disorder, unspecified; F32.9 Major depressive disorder, single episode, unspecified; F43.10 Post-traumatic stress disorder, unspecified; E11.9 Type 2 diabetes mellitus without complications; G43.909 Migraine, unspecified, not intractable, without status migrainosus; G89.29 Other chronic pain; M54.9 Dorsalgia, unspecified; I10 Essential (primary) hypertension; K21.9 Gastro-esophageal reflux disease without esophagitis; G47.30 Sleep apnea, unspecified; Z87.81 Personal history of (healed) traumatic fracture; Z87.19 Personal history of other diseases of the digestive system; Z79.84 Long term (current) use of oral hypoglycemic drugs; Z90.49 Acquired absence of other specified parts of digestive tract; W22.09XA Striking against other stationary object, initial encounter; Y99.0 Civilian activity done for income or pay
CPT/HCPCS: 36415; 70450; 72070; 72100; 80053; 81000; 82962; 83735; 83874; 84484; 85025; 85610; 85652; 85730; 86141; 93005

== ENCOUNTER → 2017-05-20 | Outpatient (CLI) | payer BC ==
[~2017-05-20] MED LIST changes: -METO-270 PO; +METO-387 PO
== END ==
LOC: RAD 11:33
PROVIDERS: ATTEND Family Medicine
DX: M25.512 Pain in left shoulder (principal); Z53.29 Procedure and treatment not carried out because of patient's decision for other reasons

== ENCOUNTER 2017-08-13 11:20 | Emergency (ER) | payer SELFPAY ==
[~2017-08-13] VITALS: Ht 188 cm; Wt 158.8 kg
--- NOTE | 2017-08-13 13:40 | ED Fall/Injury ---
General Chief Complaint: Trauma-Non Activation Stated Complaint: FALL Nursing Triage Note: TO TRIAGE ROOM WITH COMPLAINTS OF FALLING ON SLICK AREA AT [employer]. STATES HE DID HAVE +LOC. COMPLAINS OF HEAD PAIN, DIZZINESS, BACK AND NUMBESS TO LEFT LEG. PT ALERT ET ORIENTED AT THIS TIME. Source: patient, other Exam Limitations: no limitations History of Present Illness Date Seen by Provider: Aug 13, 2017 Time Seen by Provider: 13:34 Initial Comments Patient presents to ER by private conveyance where he walked into the lobby and then used a wheelchair to come back to the bed. Patient transferred on his own. He says usually walks well without a cane or walker. Today about 11:00 this morning he was at a gas station walking down a handicapped ramp and his feet slipped out from underneath him and he fell landing on his back and then striking the back of his head against the floor. He has still a bit of a headache but this pain is tolerable. What concerns him is because he started having numbness in his left leg where he feels like somebody could stabbed him with a knife anywhere not feel it. He says he has some ongoing level of numbness and tingling in his left leg at baseline but is usually pretty mild. He does use hydrocodone 4 times a day as needed. He has a history of T4 through L3 fusions with rods. He is concerned he might have damaged some of his hardware in the fall. He is not having any incontinence of bowel or bladder. He did lose consciousness for a few seconds according to his significant other who was with him during the fall. He says this morning he woke up was having a really good day so he has not taken any hydrocodone yet. Shortly after the physician left the room and While in the ER the patient tried lifting his leg on his own and felt a popping sensation in his back and excruciating pain. Patient sees Dr. Dillard now but in the past his neurosurgeon was Dr. Abdalla who left [place] for [place] so Mr. Vásquez no longer follows with this doctor. [facility] Allergies and Home Medications Allergies Coded Allergies: Penicillins (Verified Allergy, Unknown, 02/21/16) Sulfa (Sulfonamide Antibiotics) (Unverified Allergy, Unknown, UNKNOWN, ) peas (Unverified Allergy, Unknown, 06/09/16) FROM UNCODED ALLERGIES Home Medications Alprazolam 0.5 Mg Tablet, 0.5 MG PO TID PRN for ANXIETY, (Reported) Aspirin/Caffeine 1 Each Tablet, 1 TAB PO DAILY PRN for PAIN, (Reported) Carisoprodol 350 Mg Tablet, 700 MG PO BID, (Reported) TAKES 2 (350MG) TABLETS Diclofenac Sodium 75 Mg Tablet.dr, 75 MG PO BID, (Reported) Duloxetine HCl 30 Mg Capsule.dr, 30 MG PO HS, (Reported) TAKES ALONG WITH A 60MG CAPSULE Duloxetine HCl 60 Mg Capsule.dr, 60 MG PO HS, (Reported) TAKES ALONG WITH A 30MG CAPSULE Enalapril Maleate 20 Mg Tablet, 20 MG PO DAILY, (Reported) Gabapentin 600 Mg Tablet, 600 MG PO TID, (Reported) Glipizide 10 Mg Tablet, 10 MG PO HS, (Reported) Hydrocodone/Acetaminophen 1 Each Tablet, 2 TAB PO BID, (Reported) Hydrocodone/Acetaminophen 1 Each Tablet, 1-2 EACH PO Q4H, #35 Prescribed by: ABDULAZIZ KWAN on 07/14/16 1139 Hyoscyamine Sulfate 0.125 Mg Tab.rapdis, 1-2 TAB PO Q6H PRN for CRAMPS, ( Reported) Meclizine HCl 25 Mg Tablet, 25 MG PO Q6H, #30 Prescribed by: ALEX BLACKWELL on 06/09/16 1639 Ondansetron 8 Mg Tab.rapdis, 8 MG PO Q8H PRN for NAUSEA, (Reported) Pantoprazole Sodium 40 Mg Tablet.dr, 40 MG PO DAILY PRN for HEARTBURN, (Reported ) Quetiapine Fumarate 200 Mg Tablet, 200 MG PO HS, (Reported) Quetiapine Fumarate 200 Mg Tablet, 100 MG PO DAILY PRN for AGITATION, (Reported) TAKES 1/2 (200MG) TABLET Scopolamine 1 Each Patch.td72, 1.5 MG TOP Q72H, #5 Prescribed by: ALEX BLACKWELL on 06/09/16 1639 Sucralfate 1 Gm Tablet, 1 GM PO QID PRN for STOMACH UPSET, (Reported) Constitutional: No chills, No diaphoresis Eyes: Denies Blindness, Denies Blurred Vision Ears, Nose, Mouth, Throat: denies ear pain, denies ear discharge Respiratory: No cough, No dyspnea on exertion Cardiovascular: No chest pain, No palpitations Gastrointestinal: No abdominal pain, No constipation, No diarrhea, No nausea, No vomiting Genitourinary: No discharge, No dysuria, No frequency, No incontinence Musculoskeletal: see HPI, back pain Past Hkdmcgs-Popuzb-Gklvsq Hx Patient Social History Alcohol Use: Rarely Uses Recreational Drug Use: No Smoking Status: Never a Smoker 2nd Hand Smoke Exposure: No Recent Foreign Travel: No Contact w/Someone Who Travel: No Recent Infectious Disease Expo: No Recent Hopitalizations: No Immunizations Up To Date Tetanus Booster (TDap): Less than 5yrs Date of Influenza Vaccine: Mar 03, 2016 Seasonal Allergies Seasonal Allergies: Yes Surgeries History of Surgeries: Yes (LEFT THUMB, LEFT FOOT, BACK SURGERY, LAP HERLINDA FUNDOPLICATION) Surgeries: Abdominal, Orthopedic Respiratory History of Respiratory Disorde: Yes Respiratory Disorders: Sleep Apnea Currently Using CPAP: Yes Currently Using BIPAP: No Cardiovascular History of Cardiac Disorders: Yes Cardiac Disorders: Chronic Edema/Swelling, Hypertension Neurological History of Neurological Disord: Yes Neurological Disorders: Headaches /Migraines Reproductive System Hx Reproductive Disorders: No Sexually Transmitted Disease: No HIV/AIDS: No Gastrointestinal History of Gastrointestinal Di: Yes (ABDOMINAL PAIN) Gastrointestinal Disorders: Gastroesophageal Reflux, Hiatal Hernia, Gall Bladder Disease Musculoskeletal History of Musculoskeletal Dis: Yes Musculoskeletal Disorders: Chronic Back Pain, Fractures Endocrine History of Endocrine Disorders: Yes (MORBID OBESITY) Endocrine Disorders: Diabetes, Non-Insulin dep Cancer History of Cancer: No Psychosocial History of Psychiatric Problem: Yes Behavioral Health Disorders: Anxiety, PTSD, Depression Integumentary History of Skin or Integumenta: No Blood Transfusions History of Blood Disorders: No Adverse Reaction to a Blood Tr: No Physical Exam Vital Signs Vital Signs - First Documented 08/13/17 08/13/17 12:56 13:30 Temp 97.9 Pulse 97 Resp 20 B/P (MAP) 159/100 (119) Pulse Ox 100 Capillary Refill : Less Than 3 Seconds General Appearance: WD/WN, mild distress HEENT: PERRL/EOMI, pharynx normal Neck: non-tender, full range of motion Cardiovascular: normal peripheral pulses, regular rate, rhythm Respiratory: normal breath sounds, no respiratory distress Peripheral Pulses: 2+ Dorsalis Pedis (R), 2+ Left Dors-Pedis (L) Gastrointestinal: non tender, soft Neurologic/Psychiatric: alert, normal mood/affect, oriented x 3, other ( numbness left lower extremity. Patellar Deep tendon reflexes are 1 out of 4 bilateral symmetric. ) Skin: normal color, diaphoresis Meron Coma Score Best Eye Response: (4) Open Spontaneously Best Verbal Response: (5) Oriented Best Motor Response: (6) Obeys Commands Roby Total: 15 Progress/Results/Core Measures Results/Orders Lab Results Laboratory Tests Test 08/13/17 15:29 Range/Units Glucometer 106 70-110 MG/DL My Orders Orders - LI DHILLON Orphenadrine Injection (Norflex Injectio (08/13/17 13:45) Fentanyl Injection (Sublimaze Injection (08/13/17 13:45) Saline Lock/Iv-Start (08/13/17 13:42) Ct Thoracic/Lumbar Spine Wo (08/13/17 13:37) Medications Given in ED Current Medications Medications Dose Ordered Sig/Yves Route Start Time Stop Time Status Last Admin Dose Admin Fentanyl Citrate 50 mcg ONCE ONCE IVP 08/13/17 13:45 08/13/17 13:46 DC 08/13/17 14:36 50 MCG Orphenadrine Citrate 60 mg ONCE ONCE IM 08/13/17 13:45 08/13/17 13:46 DC 08/13/17 14:36 60 MG Vital Signs/I&O Vital Sign - Last 12Hours 08/13/17 08/13/17 12:56 13:30 Temp 97.9 97.9 Pulse 97 88 Resp 20 B/P (MAP) 159/100 (119) 131/94 (106) Pulse Ox 100 Blood Pressure Mean: 106 Progress Note : Time: 15:40 Progress Note Patient has some loosening of a screw but otherwise aggravation of prior back surgeries. Ran to try conservative therapy have him follow-up with Dr. Dillard and if not improving then seek care through a neurosurgeon. Since his neurosurgeon now lives in [place] he has been encouraged to find one closer. Diagnostic Imaging Diagonstic Imaging: CT Plain Films/CT/US/NM/MRI: other Comments VIA [facility], [facility]. [place], [place] NAME: SEBASTIAN MONTE [facility] REC#: [id number] PT STATUS: REG ER : 1985 PHYSICIAN: LI DHILLON MD ADMIT DATE: 08/13/17/ER Draft Date of Exam:08/13/17 CT THORACIC/LUMBAR SPINE WO EXAM: CT THORACIC/LUMBAR SPINE WO INDICATION: Back pain. Prior cervical and thoracic lumbar surgery. COMPARISON: Thoracic and lumbar spine radiographs 03/23/2017. FINDINGS: There are 12 thoracic and 5 lumbar vertebral bodies for the purposes of this report. Marked kyphosis centered at T10. Alignment is otherwise unremarkable. Vertebral body heights preserved. No acute fractures. There are postoperative findings of bilateral dorota and pedicle screw fixation with Thomas rods spanning T4-L3. Hardware components are intact. There are lucencies about the L3 pedicle screw. The left L1 pedicle screw is perpendicular. The visualized paravertebral soft tissues are unremarkable. IMPRESSION: 1. Postoperative findings described above. There are lucencies about the right L3 pedicle screws suggesting a degree of loosening. Hardware components are intact. 2. No acute osseous findings. Dictated on workstation # [id number] Dict: 08/13/17 1434 Trans: 08/13/17 1453 BANNER [id number] Interpreted by: HENRY BOURNE MD Electronically signed by: Reviewed: Reviewed by Me (thoracic and lumbar spine) Departure Impression Impression: Primary Impression: Fall Qualified Codes: W19.XXXA - Unspecified fall, initial encounter Additional Impression: Back pain Qualified Codes: M54.42 - Lumbago with sciatica, left side Disposition: 01 HOME, SELF-CARE Condition: Stable Departure-Patient Inst. Decision time for Depature: 15:43 Referrals: ABDULLAHI DILLARD MD (PCP/Family) Primary Care Physician Patient Instructions: Low Back Pain (DC) Add. Discharge Instructions: Mode you do have a lucent screwing your back and you need to follow-up with a neurosurgeon to discuss this it is appropriate to start conservative therapy with Tylenol 1000 g every 8 hours and 800 mg of ibuprofen every 8 hours. Use heating pads, creams such as Biofreeze or icy hot and rest for the next several days. Stay mobile around the house but do not do any lifting over 20 pounds until released from physician. Plan to follow up this week or next with your primary care physician. Take one tablet of the prednisone twice a day for the next 6 days. Expect some improvement in 12-24 hours. Your back probably be hurting for several weeks. All discharge instructions reviewed with patient and/or family. Voiced understanding. Scripts Ibuprofen (Ibuprofen) 800 Mg Tablet 800 MG PO Q8H Y for PAIN for 14 Days, #42 TAB 0 Refills Prov: LI DHILLON 08/13/17 Prednisone (Prednisone) 20 Mg Tab 20 MG PO BID for 6 Days, #12 TAB 0 Refills Prov: LI DHILLON 08/13/17 Copy Copies To 1: ABDULLAHI DILLARD MD, TITUS J Aug 13, 2017 13:40
[2017-08-13] MEDS ORDERED: fentaNYL INJECTION 100 MCG/2 ML AMP IVP ONE (13:45)
[2017-08-13] MEDS ORDERED: ORPHENADRINE 60 MG/2 ML (NORFLEX) AMP IM ONE (13:45)
--- NOTE | 2017-08-13 14:53 | Diagnostic Imaging Report ---
EXAM: CT THORACIC/LUMBAR SPINE WO INDICATION: Back pain. Prior cervical and thoracic lumbar surgery. COMPARISON: Thoracic and lumbar spine radiographs 03/23/2017. FINDINGS: There are 12 thoracic and 5 lumbar vertebral bodies for the purposes of this report. Marked kyphosis centered at T10. Alignment is otherwise unremarkable. Vertebral body heights preserved. No acute fractures. There are postoperative findings of bilateral dorota and pedicle screw fixation with Thomas rods spanning T4-L3. Hardware components are intact. There are lucencies about the L3 pedicle screw. The left L1 pedicle screw is perpendicular. The visualized paravertebral soft tissues are unremarkable. IMPRESSION: 1. Postoperative findings described above. There are lucencies about the right L3 pedicle screws suggesting a degree of loosening. Hardware components are intact. 2. No acute osseous findings. Dictated by: Dictated on workstation # [id number]
[2017-08-13] MEDS ORDERED: PRD20T PO (15:47)
[2017-08-13] MEDS ORDERED: IBUP-1780 PO (15:47)
[2017-08-13 16:03] VITALS: BP 127/81
--- OUTSIDE RECORDS SUMMARY | 2017-08-16 13:04 | XMS REPORT ---
Author Author GENNARO ZUÑIGA Organization [employer] Address Unknown Phone Unavailable Care Team Providers Care Plate Printer Name Role Phone GENNARO ZUÑIGA CP Unavailable Allergies No Known Allergies Problems Problem Type Condition Code Onset Dates Condition Status Assessment Encounter for immunization Z23 Active Medications No Known Medications Procedures Procedure Coding System Code Date SINGLE IMMUNIZATION ADMIN CPT-4 47918 Apr 27, 2016 FLUARIX QUAD P-FREE 3 AND UP .50 2015 CPT-4 49598 Apr 27, 2016 Results No Known Results Immunizations Vaccine Administration Date FLUARIX QUAD P-FREE 3 AND UP .50 2015Apr 27, 2016 Summary Purpose [employer] Submission
--- OUTSIDE RECORDS SUMMARY | 2017-08-16 13:05 | XMS REPORT | Continuity of Care Document ---
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 distribution width ratio 14.1 % 10.0-14.5 Automated blood platelet count (count/volume) 258 10*3/uL 130-400 Automated blood platelet mean volume measurement 10.0 [foz_us] 7.4-10.4 Automated blood neutrophils/100 leukocytes 59 % 42-75 Automated blood lymphocytes/100 leukocytes 30 % 12-44 Blood monocytes/100 leukocytes 8 % 0-12 Automated blood eosinophils/100 leukocytes 3 % 0-10 Automated blood basophils/100 leukocytes 1 % 0-10 Blood neutrophils automated count (number/volume) 5.5 10*3 1.8-7.8 Blood lymphocytes automated count (number/volume) 2.8 10*3 1.0-4.0 Blood monocytes automated count (number/volume) 0.8 10*3 0.0-1.0 Automated eosinophil count 0.3 10*3/uL 0.0-0.3 Automated blood basophil count (count/volume) 0.1 10*3/uL 0.0-0.1 Comprehensive metabolic panel - 03/23/17 12:05 Serum or plasma sodium measurement (moles/volume) 139 mmol/L 135-145 Serum or plasma potassium measurement (moles/volume) 3.9 mmol/L 3.6-5.0 Serum or plasma chloride measurement (moles/volume) 100 mmol/L 98-107 Carbon dioxide 25 mmol/L 21-32 Serum or plasma anion gap determination (moles/volume) 14 mmol/L 5-14 Serum or plasma urea nitrogen measurement (mass/volume) 18 mg/dL 7-18 Serum or plasma creatinine measurement (mass/volume) 0.93 mg/dL 0.60-1.30 Serum or plasma urea nitrogen/creatinine mass ratio 19 NRG Serum or plasma creatinine measurement with calculation of estimated glomerular filtration rate > NRG Serum or plasma glucose measurement (mass/volume) 130 mg/dL 70-105 Serum or plasma calcium measurement (mass/volume) 10.7 mg/dL 8.5-10.1 Serum or plasma total bilirubin measurement (mass/volume) 0.5 mg/dL 0.1-1.0 Serum or plasma alkaline phosphatase measurement (enzymatic activity/volume) 71 U/L 40-136 Serum or plasma aspartate aminotransferase measurement (enzymatic activity/ volume) 19 U/L 5-34 Serum or plasma alanine aminotransferase measurement (enzymatic activity/volume ) 18 U/L 0-55 Serum or plasma protein measurement (mass/volume) 8.4 g/dL 6.4-8.2 Serum or plasma albumin measurement (mass/volume) 4.6 g/dL 3.2-4.5 Magnesium - 03/23/17 12:05 Magnesium 1.7 mg/dL 1.8-2.4 Serum or plasma C reactive protein measurement (mass/volume) - 03/23/17 12:05 Serum or plasma C reactive protein measurement (mass/volume) 0.93 mg /dL 0.00-0.50 PT panel in platelet poor plasma by coagulation assay - 03/23/17 12:05 Prothrombin time (PT) in platelet poor plasma by coagulation assay 12.9 s 12.2-14.7 INR in platelet poor plasma or blood by coagulation assay 1.0 0.8-1.4 Activated partial thromboplastin time (aPTT) in platelet poor plasma bycoagulation assay - 03/23/17 12:05 Activated partial thromboplastin time (aPTT) in platelet poor plasma bycoagulation assay 25 s 24-35 Serum or plasma troponin i.cardiac measurement (mass/volume) - 03/23/17 12:05 Serum or plasma troponin i.cardiac measurement (mass/volume) < ng/ mL <0.30 Myoglobin, serum - 03/23/17 12:05 Myoglobin, serum 129.5 ng/mL 10.0-92.0 Erythrocyte sedimentation rate by westergren method - 03/23/17 12:05 Erythrocyte sedimentation rate by westergren method 4 mm 0-15 Capillary blood glucose measurement by glucometer (mass/volume) - 03/23/17 12: 09 Capillary blood glucose measurement by glucometer (mass/volume) 119 mg/dL 70-110 Complete urinalysis with reflex to culture - 03/23/17 12:34 Urine color determination YELLOW NRG Urine clarity determination CLEAR NRG Urine pH measurement by test strip 5 5-9 Specific gravity of urine by test strip 1.025 1.016- 1.022 Urine protein assay by test strip, semi-quantitative 2+ NEGATIVE Urine glucose detection by automated test strip NEGATIVE NEGATIVE Erythrocytes detection in urine sediment by light microscopy NEGATIVE NEGATIVE Urine ketones detection by automated test strip 1+ NEGATIVE Urine nitrite detection by test strip NEGATIVE NEGATIVE Urine total bilirubin detection by test strip 1+ NEGATIVE Urine urobilinogen measurement by automated test strip (mass/volume) 1 mg/dL NORMAL Urine leukocyte esterase detection by dipstick 1+ NEGATIVE Automated urine sediment erythrocyte count by microscopy (number/high power field) NONE NRG Automated urine sediment leukocyte count by microscopy (number/high power field ) RARE NRG Bacteria detection in urine sediment by light microscopy TRACE NRG Squamous epithelial cells detection in urine sediment by light microscopy 10-25 NRG Crystals detection in urine sediment by light microscopy NONE NRG Casts detection in urine sediment by light microscopy NONE NRG Mucus detection in urine sediment by light microscopy NEGATIVE NRG Complete urinalysis with reflex to culture NO NRG Encounters ACCT No. Visit Date/Time Discharge Status Pt. Type Provider Facility Loc./Unit Complaint [id number] 06/23/2017 10:04:00 06/23/2017 23:59:59 CLS Preadmit ABDULLAHI SY MD [facility] RAD MUSCLE SPASM OF BACK [id number] 05/20/2017 11:33:00 05/20/2017 23:59:59 CLS Outpatient ABDULLAHI SY MD [facility] RAD SHOULDER PAIN [id number] 03/23/2017 11:34:00 03/23/2017 14:10:00 DIS Emergency CLIFTON ROACH [facility] ER PROFUSE SWEATING/DIZZY/ NUMBNESS IN ARMS [id number] 07/14/2016 09:04:00 07/14/2016 14:40:00 DIS Outpatient ABDULAZIZ KWAN MD [facility] SD DYSKNESIA [id number] 07/11/2016 11:29:00 07/11/2016 11:50:00 DIS Outpatient ABDULAZIZ KWAN MD [facility] PREOP DYSKNESIA [id number] 06/20/2016 13:09:00 06/20/2016 23:59:59 CLS Outpatient MARCIO PISANO EXECUTIVE DIRECTOR OF NURSING [facility] CARD RUQ PAIN,DIARRHEA [id number] 06/09/2016 06:25:00 06/09/2016 19:10:00 DIS Inpatient ALEX BLACKWELL DO [facility] ICU SYNCOPE;CHEST PAIN; PALPITATIONS;CLOSED HEAD INJURY [id number] 05/13/2016 08:31:00 05/13/2016 23:59:59 CLS Outpatient MARCIO PISANO EXECUTIVE DIRECTOR OF NURSING [facility] RAD RUQ PAIN,DIARRHEA [id number] 04/20/2016 08:28:00 04/20/2016 12:30:00 DIS Outpatient ABDULAZIZ KWAN MD [facility] SDC REFLUX;ABDOMINAL PAIN [id number] 04/19/2016 09:50:00 04/19/2016 10:50:00 DIS Outpatient ABDULAZIZ KWAN MD [facility] PREOP REFLUX;ABDOMINAL PAIN [id number] 02/21/2016 10:19:00 02/21/2016 12:39:00 DIS Emergency NING BLANCO APRN [facility] ER STOMACH PAIN/VOMITING/ DIARRHEA/PAINFUL URINATION [id number] 04/25/2015 23:29:00 04/26/2015 00:44:00 DIS Emergency KELL MORA MD [facility] ER POSS HEAD CONCUSSION [id number] 10/06/2014 21:07:00 10/07/2014 06:05:00 DIS Outpatient PEDRO ASHRAF DO [facility] SLEEP [id number] 01/29/2014 13:02:00 01/29/2014 23:59:59 CLS Outpatient MARKIE MD, MARYLIN Lynn (DDU) [facility] RT [id number] 04/25/2015 23:29:00 Document Registration [id number] 09/08/2014 20:10:00 Document Registration
== END 2017-08-13 16:03 | disposition home or self-care (01) ==
LOC: EDUNIT# 11:20 → ER 11:22
DX: M54.2 Cervicalgia (principal); R51 Headache; F41.9 Anxiety disorder, unspecified; F32.9 Major depressive disorder, single episode, unspecified; F43.10 Post-traumatic stress disorder, unspecified; E66.01 Morbid (severe) obesity due to excess calories; I10 Essential (primary) hypertension; G47.30 Sleep apnea, unspecified; G43.909 Migraine, unspecified, not intractable, without status migrainosus; K21.9 Gastro-esophageal reflux disease without esophagitis; R40.2252 Coma scale, best verbal response, oriented, at arrival to emergency department; R40.2352 Coma scale, best motor response, localizes pain, at arrival to emergency department; R40.2142 Coma scale, eyes open, spontaneous, at arrival to emergency department; Z98.890 Other specified postprocedural states; Z87.81 Personal history of (healed) traumatic fracture; Z79.4 Long term (current) use of insulin; Z88.0 Allergy status to penicillin; Z88.2 Allergy status to sulfonamides; W10.2XXA Fall (on)(from) incline, initial encounter
CPT/HCPCS: 72128; 72131; 82962; 96372; 96374; 99284

== ENCOUNTER 2018-09-07 13:34 | Outpatient (CLI) | payer BC ==
[~2018-09-07] VITALS: Ht 188 cm; Wt 117.9 kg
[~2018-09-07 13:34] MED LIST changes: -GABA600T2 PO; +GBPN600T PO; +IBUP-1780 PO; +PRD20T PO; -SCOP1PAT TOP; +SCOP1PAT11 TOP; +TRAZ-190 PO; -TRAZ100T92 PO
== END 2018-09-07 13:36 | disposition home or self-care (01) ==
LOC: PREOP 13:34
PROVIDERS: ATTEND Surgery
DX: Z01.818 Encounter for other preprocedural examination (principal)

== ENCOUNTER → 2018-09-12 | Outpatient (CLI) | payer BC ==
--- NOTE | 2018-09-12 08:58 | Diagnostic Imaging Report ---
PROCEDURE: US right lower extremity venous. TECHNIQUE: Multiple real-time grayscale images were obtained over the right lower extremity in various projections. Additional spectral analysis and color Doppler duplex images were also obtained. INDICATION: Right knee pain for two weeks. There is no evidence of right lower extremity DVT. Right lower extremity deep venous system shows normal compressibility with normal response to augmentation and Valsalva. No fluid collection or mass is seen. IMPRESSION: No evidence of right lower of the DVT. Dictated by: Dictated on workstation # [id number]
== END ==
LOC: RAD 08:02
PROVIDERS: ATTEND Family Medicine
DX: M25.561 Pain in right knee (principal)

== ENCOUNTER → 2018-09-13 | Outpatient (CLI) | payer BC ==
--- NOTE | 2018-09-13 14:47 | Diagnostic Imaging Report ---
PROCEDURE: MRI right joint lower extremity without contrast. TECHNIQUE: Multiplanar, multisequence MR imaging of the right knee was performed without contrast. COMPARISON: None available. INDICATION: Right knee pain, swelling and bruising. FINDINGS: MENISCI Medial meniscus: Normal. Lateral meniscus: Normal. LIGAMENTS ACL: Intact. PCL: Intact. MCL: Intact. LCL: The lateral collateral ligamentous complex is intact. EXTENSOR MECHANISM There is partial-thickness tearing of the patellar tendon at its insertion on the anterior tibial tuberosity. The anterior tibial tuberosity has chronic fragmentation along with osseous protuberance present. There is a small amount of edema present in this region as well. Quadriceps is normal. Patella is normal in alignment. CARTILAGE Medial compartment: Medial compartment articular cartilage is well preserved without focal high-grade chondromalacia. Lateral compartment: The lateral compartment articular cartilage is preserved without high-grade chondromalacia. Patellofemoral compartment: The patellofemoral articular cartilage is well preserved without high-grade chondromalacia. BONE Fragmentation of the anterior tibial tuberosity as above. No additional osseous abnormality. SOFT TISSUE No knee effusion or Mills's cyst. IMPRESSION: 1. Fragmentation of the anterior tibial tuberosity with a superimposed edema and cystic change. Additionally, there is partial-thickness tearing of the patellar tendon at its origin. These features are most compatible with acute injury superimposed on chronic [place]-Schlatter's disease. Correlation for anterior tibial pain is advised. 2. No meniscal tear. 3. The cruciate and collateral ligaments are intact. 4. No articular cartilage abnormality. Dictated by: Dictated on workstation # [id number]
== END ==
LOC: RAD 13:17
PROVIDERS: ATTEND Family Medicine
DX: S76.111A Strain of right quadriceps muscle, fascia and tendon, initial encounter (principal); S80.01XA Contusion of right knee, initial encounter
CPT/HCPCS: 73721